=== PATIENT | female | born 1985 | race Caucasian/White ===

== ENCOUNTER 2024-01-30 22:33 | Emergency (ER) | payer MEDICAID, OTHER ==
[~2024-01-30] VITALS: Ht 170.2 cm; Wt 67.7 kg
[~2024-01-30 22:33] MED LIST: ALBU6.7H14 INH; AZIT250T PO; BUSP5TAB3 PO; CLON-529 PO; HYDR-3965 PO; NAPR500T6 PO; OXYC40TA39 PO; PRENATAL ONE T1 EACH PO
[2024-01-30 22:47] VITALS: TEMP 98.4
[2024-01-31] MEDS: ketorolac tromethamine 15mg/ml inj. IM ONE (01:48)
[2024-01-31 03:57] VITALS: BP 98/62; PULSE 90; RESP 16; O2SAT 98
== END 2024-01-31 03:56 | disposition home or self-care (01) ==
LOC: ER 22:34
DX: M25.572 Pain in left ankle and joints of left foot (principal); F11.90 Opioid use, unspecified, uncomplicated; Z88.5 Allergy status to narcotic agent; Z79.899 Other long term (current) drug therapy; Z79.1 Long term (current) use of non-steroidal anti-inflammatories (NSAID); Z79.2 Long term (current) use of antibiotics
CPT/HCPCS: 73610; 96372; 99283; J1885

== ENCOUNTER 2024-11-16 08:44 | Emergency (ER) | payer MEDICAID, OTHER ==
[~2024-11-16] VITALS: Ht 167.6 cm; Wt 58.9 kg
[~2024-11-16 08:44] MED LIST changes: +NAPR-1480 PO; -NAPR500T6 PO
[2024-11-16 08:48] VITALS: BP 94/66; PULSE 85; RESP 18; TEMP 98.7; O2SAT 97
== END 2024-11-16 09:10 | disposition home or self-care (01) ==
LOC: ER 08:44
DX: Z00.00 Encounter for general adult medical examination without abnormal findings (principal); F11.90 Opioid use, unspecified, uncomplicated; Z88.5 Allergy status to narcotic agent; Z79.899 Other long term (current) drug therapy
CPT/HCPCS: 99281